=== PATIENT | male | born 1960 | race Caucasian/White ===

== ENCOUNTER 2024-03-24 08:19 | Day surgery (SDC) | payer BC ==
[2024-03-24] MEDS ORDERED: Xylocaine-Mpf 2% 5 Ml Vial IJ ONE (08:20)
[2024-03-24] MEDS ORDERED: Lactated Ringers 1,000 ML IV ONE (09:53)
[2024-03-24] MEDS ORDERED: DEXMEDETOMIDINE 80 MCG/20ML-NS IV ONE (10:09)
[2024-03-24] MEDS ORDERED: Versed 2 MG/2 ML Injection ONE (10:09)
[2024-03-24] MEDS ORDERED: Amidate 20 MG/10 ML IV ONE (10:11)
--- NOTE | 2024-03-24 10:29 | XRAY ---
Indication: Right C2-C4 MBB. Intraoperative fluoroscopy provided for 12 seconds. 2 digital spot image submitted for interpretation demonstrates posterior needle tips projecting over the expected right C2-C4 nerve roots. Correlate with intraoperative findings/report.
--- NOTE | 2024-03-24 11:34 | XRAY ---
12 seconds of fluoroscopy was used in surgery for a right C2-C4 MBB.
== END 2024-03-24 10:37 | disposition home or self-care (01) ==
LOC: SDC-PAIN 08:19
PROVIDERS: ATTEND Psychiatry & Neurology Pain Medicine
DX: M47.812 Spondylosis without myelopathy or radiculopathy, cervical region (principal); E11.9 Type 2 diabetes mellitus without complications
CPT/HCPCS: 64490; 64491; 72040; 77002; 82947; J2250

== ENCOUNTER 2024-05-05 08:19 | Day surgery (SDC) | payer BC ==
[2024-05-05] MEDS ORDERED: LIDOCAINE HCL 1% AMPUL 5 ML IJ ONE (08:20)
[2024-05-05] MEDS ORDERED: BUPIVACAINE 0.5% VIAL IJ ONE (08:20)
[2024-05-05] MEDS ORDERED: Versed 2 MG/2 ML Injection ONE (10:05)
[2024-05-05] MEDS ORDERED: DEXMEDETOMIDINE 80 MCG/20ML-NS IV ONE (10:05)
--- NOTE | 2024-05-05 13:22 | XRAY ---
Indication: Right C2-C4 MBB. Intraoperative fluoroscopy provided for 27 seconds. 2 digital spot image submitted for interpretation demonstrates posterior needle tips projecting over the expected right C2-C4 nerve roots. Correlate with intraoperative findings/report.
--- NOTE | 2024-05-05 14:04 | XRAY ---
27 seconds of fluoroscopy was used in surgery for a right C2-C4 MBB.
== END 2024-05-05 10:35 | disposition home or self-care (01) ==
LOC: SDC-PAIN 08:19
PROVIDERS: ATTEND Psychiatry & Neurology Pain Medicine
DX: M47.812 Spondylosis without myelopathy or radiculopathy, cervical region (principal); E11.9 Type 2 diabetes mellitus without complications
CPT/HCPCS: 64490; 64491; 72040; 77002; 82947; J2250

== ENCOUNTER 2024-06-09 09:41 | Day surgery (SDC) | payer BC ==
[2024-06-09] MEDS ORDERED: BUPIVACAINE 0.5% VIAL IJ ONE (09:42)
[2024-06-09] MEDS ORDERED: LIDOCAINE HCL 1% AMPUL 5 ML IJ ONE (09:42)
[2024-06-09] MEDS ORDERED: Decadron 4 MG INJ IV ONE (09:42)
[2024-06-09] MEDS ORDERED: Versed 2 MG/2 ML Injection ONE ×2 (11:19→11:30)
[2024-06-09] MEDS ORDERED: SUBLIMAZE 100 MCG/2 ML ONE (11:20)
[2024-06-09] MEDS ORDERED: Amidate 20 MG/10 ML IV ONE (11:43)
--- NOTE | 2024-06-09 12:27 | XRAY ---
Indication: Right C2-C4 RFA. Intraoperative fluoroscopy was provided for 25 seconds. 3 digital spot images submitted for interpretation demonstrates posterior needle tips projecting over expected right C2-C4 nerve roots. Correlate with intraoperative findings/report.
--- NOTE | 2024-06-09 12:52 | XRAY ---
25 seconds of fluoroscopy was used in surgery for a right C2-C4 RFA.
== END 2024-06-09 12:00 | disposition home or self-care (01) ==
LOC: SDC-PAIN 09:41
PROVIDERS: ATTEND Psychiatry & Neurology Pain Medicine
DX: M47.812 Spondylosis without myelopathy or radiculopathy, cervical region (principal); E11.9 Type 2 diabetes mellitus without complications
CPT/HCPCS: 72040; 77002; 82947; J1100; J2250; J3010

== ENCOUNTER 2024-10-06 07:49 | Day surgery (SDC) | payer BC ==
[2024-10-06] MEDS ORDERED: LIDOCAINE HCL 2% 100 MG/5 ML IJ ONE (07:50)
[2024-10-06] MEDS ORDERED: Versed 2 MG/2 ML Injection ONE (09:50)
[2024-10-06] MEDS ORDERED: Amidate 20 MG/10 ML IV ONE ×2 (09:52→09:55)
--- NOTE | 2024-10-06 11:36 | XRAY ---
Indication: Bilateral L4-S1 MBB. Intraoperative fluoroscopy provided for 15 seconds. Single digital spot image submitted for interpretation demonstrates posterior needle tips projecting over expected left and right L4-S1 nerve roots. Correlate with intraoperative findings/report.
--- NOTE | 2024-10-06 12:57 | XRAY ---
15 seconds of fluoroscopy was used in surgery for a bilateral L4-S1 MBB.
== END 2024-10-06 10:37 | disposition home or self-care (01) ==
LOC: SDC-PAIN 07:49
PROVIDERS: ATTEND Psychiatry & Neurology Pain Medicine
DX: M47.817 Spondylosis without myelopathy or radiculopathy, lumbosacral region (principal); E11.9 Type 2 diabetes mellitus without complications
CPT/HCPCS: 64493; 64494; 72020; 82947; J2250